=== PATIENT | male | born 1975 | race Caucasian/White ===

== ENCOUNTER 2017-06-01 14:38 | Emergency (ER) | payer OTHER ==
[2017-06-01 14:39] VITALS: O2SAT 99
[2017-06-01 14:59] LABS: I-STAT POTASSIUM 4.2 MMOL/L (3.5-4.9)
[2017-06-01 15:00] LABS: AUTOMATED NEUTROPHIL # 4.8 TH/MM3 (1.8-7.7); BASOPHIL # 0.1 TH/MM3 (0-0.2); EOSINOPHIL # 0.1 TH/MM3 (0-0.4); HEMATOCRIT 46.5 % (39.0-51.0); LYMPH % 34.9 % (9.0-44.0); MEAN CELL VOLUME 83.1 FL (80.0-100.0); MEAN CORPUSCULAR HEMOGLOBIN 29.1 PG (27.0-34.0); MONO % 8.1 % (0.0-8.0); PLATELET COUNT 242 TH/MM3 (150-450); RED CELL DISTRIBUTION WIDTH 14.2 % (11.6-17.2); WHITE BLOOD COUNT 8.7 TH/MM3 (4.0-11.0)
--- NOTE | 2017-06-01 15:03 | RADRPT ---
EXAM DATE/TIME: 06/01/2017 14:43 [facility] COMPARISON: No previous studies available for comparison. INDICATIONS : Trauma Alert, fell MEDICAL HISTORY : None. SURGICAL HISTORY : None. ENCOUNTER: Initial ACUITY: 1 day PAIN SCORE: 0/10 LOCATION: chest FINDINGS: A single view of the chest demonstrates the lungs to be symmetrically, but under aerated without evid ence of mass, infiltrate or effusion. The cardiomediastinal contours are unremarkable. Osseous stru ctures are intact. CONCLUSION: Hypoinflation with no acute cardiopulmonary process. Bhupinder Lal MD on June 01, 2017 at 15:01 Board Certified Radiologist. This report was verified electronically.
[2017-06-01 15:05] LABS: HEMO FLAGS AUTO DIFF
--- NOTE | 2017-06-01 15:05 | PD ---
HPI Chief Complaint: spinal cord injury Time Seen by Provider: 14:39 Travel History International Travel<30 days: No Contact w/Intl Traveler<30days: No Traveled to known affect area: No History of Present Illness HPI This patient is called a trauma alert by paramedics. There is suspicion of spinal cord injury so this is a level I activation. 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 He reports that he hit his head. No LOC. He complains of head and neck pain as well as some back pain and he complains of weakness in sensory loss of the left leg. Duration 1 hour. Symptoms moderately severe. No alleviating factors. No exacerbating factors. I gave report to trauma surgeon Dr. Anderson, who arrived just as the patient was heading to CAT scan. Allergies-Medications (Allergen,Severity, Reaction): Coded Allergies: meperidine (Verified Allergy, Severe, Anaphylaxis, 06/01/17) Reported Meds & Prescriptions Reported Meds & Active Scripts Active No Active Prescriptions or Reported Medications Review of Systems General / Constitutional: No: Fever Eyes: No: Visual changes HENT: No: Headaches Cardiovascular: No: Chest Pain or Discomfort Respiratory: No: Shortness of Breath Gastrointestinal: No: Abdominal Pain Genitourinary: No: Dysuria Musculoskeletal: Positive: Weakness, Pain Skin: No Rash Neurologic: Positive: Weakness, Sensory Disturbance Psychiatric: No: Depression Endocrine: No: Polydipsia Hematologic/Lymphatic: No: Easy Bruising Physical Exam Narrative GENERAL: Well-nourished, well-developed patient with weakness and sensory loss of left leg. SKIN: Focused skin assessment reveals no rash and nodules. Skin is Warm and dry. HEAD: Atraumatic. Normocephalic. EYES: Pupils equal and round. No scleral icterus. No injection or drainage. ENT: No nasal bleeding or discharge. Mucous membranes pink and moist. NECK: Trachea midline. No JVD. C-collar maintained CARDIOVASCULAR: Regular rate and rhythm. No murmur appreciated. RESPIRATORY: No accessory muscle use. Clear to auscultation. Breath sounds equal bilaterally. GASTROINTESTINAL: Abdomen soft, non-tender, nondistended. Hepatic and splenic margins not palpable. MUSCULOSKELETAL: No obvious deformities. No clubbing. No cyanosis. No edema. NEUROLOGICAL: Awake and alert. No obvious cranial nerve deficits. Motor exam reveals some weakness of quadriceps and plantar and dorsiflexion of left leg. He does have some motion but weaker than the right side. Unclear if he is giving full effort. Normal speech. GCS 15. Subjective decreased sensation from proximal thigh all the way down to the left foot to both sharp and light touch. Sensation on the right. Sensation around the perianal region intact PSYCHIATRIC: Appropriate mood and affect; insight and judgment normal. Data Data Last Documented VS Vital Signs Date Time Temp Pulse Resp B/P (MAP) Pulse Ox O2 Delivery O2 Flow Rate FiO2 06/01/17 15:20 98.2 74 10 121/78 (92) 100 Room Air 06/01/17 14:39 21 Orders Orders Ed Poc Ultrasound (06/01/17 ) I-Stat Profile (06/01/17 14:40) I-Stat Creatinine (06/01/17 14:40) Complete Blood Count With Diff (06/01/17 14:40) Prothrombin Time / Inr (Pt) (06/01/17 14:40) Act Partial Throm Time (Ptt) (06/01/17 14:40) Type And Screen (06/01/17 14:40) Fibrinogen (06/01/17 14:40) Chest, Single Ap (06/01/17 14:40) Pelvis, Ap Only (Routine) (06/01/17 14:40) Ct Brain W/O Iv Contrast(Rout) (06/01/17 14:40) Ct Cerv Spine W/O Contrast (06/01/17 14:40) Ct Thor Spine W/O Contrast (06/01/17 14:40) Ct Lumb Spine W/O Contrast (06/01/17 14:40) Iv Access Insert/Monitor (06/01/17 14:40) Ecg Monitoring (06/01/17 14:40) Oximetry (06/01/17 14:40) Oxygen Administration (06/01/17 14:40) Mri L Spine W/O Contrast (06/01/17 ) Mri T Spine W/O Contrast (06/01/17 ) Mri C Spine W/O Contrast (06/01/17 ) Acetaminophen (Tylenol) (06/01/17 18:00) Labs Laboratory Tests Test 06/01/17 14:40 White Blood Count 8.7 TH/MM3 Red Blood Count 5.60 MIL/MM3 Hemoglobin 16.3 GM/DL Bedside Hemoglobin 16.3 G/DL Hematocrit 46.5 % Bedside Hematocrit 48.0 % Mean Corpuscular Volume 83.1 FL Mean Corpuscular Hemoglobin 29.1 PG Mean Corpuscular Hemoglobin Concent 35.0 % Red Cell Distribution Width 14.2 % Platelet Count 242 TH/MM3 Mean Platelet Volume 9.4 FL Neutrophils (%) (Auto) 55.0 % Lymphocytes (%) (Auto) 34.9 % Monocytes (%) (Auto) 8.1 % Eosinophils (%) (Auto) 1.0 % Basophils (%) (Auto) 1.0 % Neutrophils # (Auto) 4.8 TH/MM3 Lymphocytes # (Auto) 3.0 TH/MM3 Monocytes # (Auto) 0.7 TH/MM3 Eosinophils # (Auto) 0.1 TH/MM3 Basophils # (Auto) 0.1 TH/MM3 CBC Comment AUTO DIFF Differential Comment AUTO DIFF CONFIRMED Platelet Estimate NORMAL Platelet Morphology Comment NORMAL Red Cell Morphology Comment NORMAL Prothrombin Time 10.4 SEC Prothromb Time International Ratio 0.9 RATIO Activated Partial Thromboplast Time 25.7 SEC Fibrinogen 208 mg/dL Bedside Sodium 141 MMOL/L Bedside Potassium 4.2 MMOL/L Bedside Chloride 102 MMOL/L Bedside Blood Urea Nitrogen 9 MG/DL Bedside Creatinine 0.8 MG/DL Bedside Glucose 89 MG/DL [facility] Medical Screen Exam Complete: Yes Emergency Medical Condition: Yes Medical Record Reviewed: Yes Differential Diagnosis Vertebral fracture, spinal cord hematoma, cord compression Narrative Course Patient arrives critically ill based on possible spinal cord injury 2 IVs placed Initial blood pressure and pulse are normal I reviewed his chest x-ray which is normal I reviewed his pelvis x-ray which is normal I've ordered CT imaging of brain and the entire spine CBC is normal Metabolic profile is normal CT of the C-spine and thoracic spine and lumbar spine all revealed degenerative changes rather diffusely but there is no fracture or obvious canal impingement or cord compression I discussed in detail with trauma surgeon Dr. Anderson I have ordered MRI of his spinal cord We'll reevaluate him neurologically as the workup continues MRI of the entire spinal cord is done and there are no obvious structural lesions to explain his presentation. He does have arthritic changes throughout but no cord compression or impingement or cord hematoma I reevaluated the patient He seems to move his leg more than he did earlier He doesn't seem to give any real effort We stood up and tried to walk him but he didn't want to walk and just sort of collapsed down He did seem to his left leg to lift himself up off the bed but then wouldn't put weight on it His neurologic exam seems to change frequently. It seems inconsistent. I discussed at length with Dr. Anderson. We discussed whether there is value to hospitalizing him but just be observed as there is nothing surgical to fix and he recommends sending him back to the care home to follow-up with the [facility] Narrative Aggregate critical care time was 35 minutes. Time to perform other separately billable procedures was not included in the critical care time. My time did not include minutes spent treating any other patients simultaneously or on activities that did not directly contribute to the patient's treatment. The services I provided to this patient were to treat and/or prevent clinically significant deterioration that could result in: Permanent neurologic disability , paralysis, cord hematoma I provided critical care services requiring my management, as noted below: Chart data review, documentation time, medication orders and management, vital sign assessments/reviewing monitor data, ordering and reviewing lab tests, ordering and interpreting/reviewing x-rays and diagnostic studies, care of the patient and discussion of the patient with the admitting physicians. Trauma Alert - Level One Trauma Alert Level One: Full trauma team activate Diagnosis Diagnosis: Primary Impression: Right leg weakness Additional Impression: Fall (on) (from) other stairs and steps, initial encounter Additional Instructions: Ambulate as able Follow-up with [facility] Script[facility] No Active Prescriptions or Reported Meds Disposition: [address] LAW ENFORCEMNT Condition: Stable Shahid Duffy MD Jun 01, 2017 15:05
--- NOTE | 2017-06-01 15:05 | RADRPT ---
EXAM DATE/TIME: 06/01/2017 14:43 [facility] COMPARISON: No previous studies available for comparison. INDICATIONS : Trauma Alert, fell MEDICAL HISTORY : None. SURGICAL HISTORY : None. ENCOUNTER: Initial ACUITY: 1 day PAIN SCORE: 0/10 LOCATION: Pelvis FINDINGS: A single frontal view of the pelvis demonstrates no evidence of fracture. Well-corticated ossificati on lateral to the left acetabular roof may represent a chronic old avulsion fracture or accessory oss ification. The bony pelvic ring is intact. Bony mineralization is normal. The soft tissues are inta ct. CONCLUSION: 1. Probable old avulsion injury or accessory ossification adjacent to the left acetabular roof. 2. No acute fracture. Bhupinder Lal MD on June 01, 2017 at 15:02 Board Certified Radiologist. This report was verified electronically.
--- NOTE | 2017-06-01 15:10 | RADRPT ---
EXAM DATE/TIME: 06/01/2017 14:46 [facility] COMPARISON: No previous studies available for comparison. INDICATIONS : Trauma alert, fall down concrete stairs today. RADIATION DOSE: 56.35 CTDIvol (mGy) MEDICAL HISTORY : Non-responsive. SURGICAL HISTORY : Non-responsive. ENCOUNTER: Initial ACUITY: 1 day PAIN SCALE: Non-responsive LOCATION: Bilateral head TECHNIQUE: Multiple contiguous axial images were obtained of the head. Using automated exposure control and adj ustment of the mA and/or kV according to patient size, radiation dose was kept as low as reasonably a chievable to obtain optimal diagnostic quality images. DICOM format image data is available electro nically for review and comparison. FINDINGS: CEREBRUM: The ventricles are normal for age. No evidence of midline shift, mass lesion, hemorrhage or acute in farction. No extra-axial fluid collections are seen. POSTERIOR FOSSA: The cerebellum and brainstem are intact. The 4th ventricle is midline. The cerebellopontine angle i s unremarkable. EXTRACRANIAL: The visualized portion of the orbits is intact. SKULL: The calvaria is intact. No evidence of skull fracture. CONCLUSION: Negative exam. No fracture. Bhupinder Lal MD on June 01, 2017 at 15:08 Board Certified Radiologist. This report was verified electronically.
[2017-06-01 15:20] VITALS: BP 121/78; PULSE 74; RESP 10; TEMP 98.2; O2SAT 100
[2017-06-01 15:20] LABS: APTT (PATIENT) 25.7 SEC (24.3-30.1); INTERNATIONAL NORMALIZED RATIO 0.9 RATIO; PROTHROMBIN TIME - PATIENT 10.4 SEC (9.8-11.6)
--- NOTE | 2017-06-01 15:20 | RADRPT ---
EXAM DATE/TIME: 06/01/2017 14:46 [facility] COMPARISON: No previous studies available for comparison. INDICATIONS : Trauma alert, fall down concrete stairs today. RADIATION DOSE: 42.3 CTDIvol (mGy) MEDICAL HISTORY : Non-responsive. SURGICAL HISTORY : Non-responsive. ENCOUNTER: Initial ACUITY: 1 day PAIN SCALE: 8/10 LOCATION: Bilateral back TECHNIQUE: Volumetric scanning of the cervical spine was performed. Multiplanar reconstructions in the sagittal, coronal and oblique axial planes were performed. Using automated exposure control and adjustment o f the mA and/or kV according to patient size, radiation dose was kept as low as reasonably achievable to obtain optimal diagnostic quality images. DICOM format image data is available electronically f or review and comparison. FINDINGS: Sagittal and coronal reconstructions show degenerative disease throughout the cervical spine with los s of disc height at every cervical level. Marginal spurring is seen from C2-3 through C6-7. However, vertebral body heights are maintained without evidence of fracture or listhesis. . C2-C3: Uncovertebral ridging. Some encroachment on the spinal canal and left neural foramina. Spinal canal a nd right neural foramina are adequate C3-C4: Uncovertebral ridging. Some encroachment on both neural foramina and the spinal canal. C4-C5: Uncovertebral ridging. Encroachment most prominent on the left neural foramina. C5-C6: Diffuse uncovertebral ridging with some encroachment on the neural foramina most prominent leftward C6-C7: Diffuse uncovertebral ridging. Encroachment on both neural foramina, right greater than left. C7-T1: The bony spinal canal is normal in size. No evidence of disc bulge or herniation. The neural forami na are bilaterally patent. CONCLUSION: 1. Degenerative disc disease throughout the cervical spine with loss of height and marginal spurring from C2-3 through C6 level. 2. Spurring encroaches on the neural foramina and spinal canal at multiple levels as detailed above. 3. No fracture or listhesis. Bhupinder Lal MD on June 01, 2017 at 15:09 Board Certified Radiologist. This report was verified electronically.
--- NOTE | 2017-06-01 15:34 | RADRPT ---
EXAM DATE/TIME: 06/01/2017 14:54 [facility] COMPARISON: No previous studies available for comparison. INDICATIONS : Trauma alert, fall down concrete stairs today. RADIATION DOSE: 22.16 CTDIvol (mGy) ; Combined studies - Thoracic Spine/Lumbar Spine MEDICAL HISTORY : Non-responsive. SURGICAL HISTORY : Non-responsive. ENCOUNTER: Initial ACUITY: 1 day PAIN SCALE: Non-responsive LOCATION: Bilateral back TECHNIQUE: Volumetric scanning of the thoracic spine was performed. Multiplanar reconstructions in the sagittal , coronal and oblique axial planes were performed. Using automated exposure control and adjustment o f the mA and/or kV according to patient size, radiation dose was kept as low as reasonably achievable to obtain optimal diagnostic quality images. DICOM format image data is available electronically f or review and comparison. FINDINGS: Sagittal and coronal reconstructions show multilevel degenerative disc disease with marginal spurring most prominent from T6-7 inferiorly. These are predominately directed anteriorly and laterally. Vert ebral body heights are maintained without fracture or listhesis. Despite degenerative changes, the sp inal canal appears to be adequate throughout T1-T2: Normal. T2-T3: The thecal sac has a normal diameter. No evidence of disc bulge or protrusion. T3-T4: The thecal sac has a normal diameter. No evidence of disc bulge or protrusion. T4-T5: The thecal sac has a normal diameter. No evidence of disc bulge or protrusion. T5-T6: The thecal sac has a normal diameter. No evidence of disc bulge or protrusion. T6-T7: Anteriorly directed spurs. Spinal canal is patent T7-T8: Anteriorly directed spurs. Spinal canal is patent T8-T9: Anteriorly directed spur. Spinal canal is patent T9-T10: Anteriorly directed spur. Spinal canal is patent. T10-T11: Anteriorly directed spur. Spinal canal is patent T11-T12: Anteriorly directed spur. Spinal canal is patent T12-L1: The thecal sac has a normal diameter. No evidence of disc bulge or protrusion. CONCLUSION: 1. Multilevel degenerative disc disease with predominantly anterior and lateral spurring from T6-T7 i nferiorly. 2. Despite degenerative changes, spinal canal appears to be adequate throughout. 3. No fracture or listhesis. Bhupinder Lal MD on June 01, 2017 at 15:29 Board Certified Radiologist. This report was verified electronically.
--- NOTE | 2017-06-01 15:42 | RADRPT ---
EXAM DATE/TIME: 06/01/2017 14:54 [facility] COMPARISON: No previous studies available for comparison. INDICATIONS : Trauma alert, fall down concrete stairs today. RADIATION DOSE: 22.16 CTDIvol (mGy) ; Combined studies - Thoracic Spine/Lumbar Spine MEDICAL HISTORY : Non-responsive. SURGICAL HISTORY : Non-responsive. ENCOUNTER: Initial ACUITY: 1 day PAIN SCALE: Non-responsive LOCATION: Bilateral back TECHNIQUE: Volumetric scanning of the lumbar spine was performed. Multiplanar reconstructions in the sagittal, coronal and oblique axial planes were performed. Using automated exposure control and adjustment of the mA and/or kV according to patient size, radiation dose was kept as low as reasonably achievable t o obtain optimal diagnostic quality images. DICOM format image data is available electronically for review and comparison. FINDINGS: Sagittal and coronal reconstructions show degenerative disc disease lower dorsal spine with anteriorl y directed marginal spurs at T11-12 and T12-L1. Small spurs are seen off the superior endplate of L3 and L4. Otherwise, vertebral body and disc heights are maintained the lumbar spine. No listhesis. Vac uum joint phenomenon in the SI joints bilaterally. T12-L1: The thecal sac has a normal diameter. No evidence of disc bulge or protrusion. The neural foramina are patent bilaterally. L1-L2: The thecal sac has a normal diameter. No evidence of disc bulge or protrusion. The neural foramina are patent bilaterally. L2-L3: The thecal sac has a normal diameter. No evidence of disc bulge or protrusion. The neural foramina are patent bilaterally. L3-L4: The thecal sac has a normal diameter. No evidence of disc bulge or protrusion. The neural foramina are patent bilaterally. L4-L5: The thecal sac has a normal diameter. No evidence of disc bulge or protrusion. The neural foramina are patent bilaterally. L5-S1: The thecal sac has a normal diameter. No evidence of disc bulge or protrusion. The neural foramina are patent bilaterally. CONCLUSION: 1. Large marginal spurs directed anteriorly in the lower dorsal spine and the thoracolumbar junction. Small spurs of the superior endplates of L3 and L4. 2. Otherwise, spinal canal and neural foramina appear to be adequate at all lumbar levels. 3. No fracture or listhesis. 4. Vacuum joint phenomenon in the SI joints bilaterally. Bhupinder Lal MD on June 01, 2017 at 15:33 Board Certified Radiologist. This report was verified electronically.
[2017-06-01 15:49] LABS: SCAN/DIFF AUTO DIFF CONFIRMED
[2017-06-01 15:50] LABS: PLATELET ESTIMATE SMEAR NORMAL (NORMAL); PLATELET MORPHOLOGY NORMAL (NORMAL)
--- NOTE | 2017-06-01 16:38 | RADRPT ---
EXAM DATE/TIME: 06/01/2017 16:06 [facility] COMPARISON: CT THORACIC SPINE W/O CONTRAST, June 01, 2017, 14:54. INDICATIONS : Trauma. Left lower extremity weakness. MEDICAL HISTORY : Hepatitis C. SURGICAL HISTORY : Right knee surgery. ENCOUNTER: Initial ACUITY: 1 day PAIN SCORE: 0/10 LOCATION: Paraspinal TECHNIQUE: Multiplanar multisequence MRI of the thoracic spine was performed. FINDINGS: VERTEBRA: Bone marrow signal is within normal limits. No fracture or compression deformity is identified. Endpl ate osteophytes are present anteriorly at multiple levels. ALIGNMENT: There is no anterolisthesis or retrolisthesis. There is accentuated thoracic kyphosis around the T9-T 10 level. CORD: Normal position and configuration. T1-T2: No disc herniation, canal stenosis, or neural foraminal stenosis. T2-T3: No disc herniation, canal stenosis, or neural foraminal stenosis. T3-T4: No disc herniation, canal stenosis, or neural foraminal stenosis. T4-T5: There is a small central disc protrusion. No canal stenosis or neural foraminal stenosis is identifie d. T5-T6: No disc herniation, canal stenosis, or neural foraminal stenosis. T6-T7: No disc herniation, canal stenosis, or neural foraminal stenosis. T7-T8: There is a very small left paracentral disc protrusion. No spinal canal stenosis or neural foraminal stenosis is identified. T8-T9: No disc herniation, canal stenosis, or neural foraminal stenosis. T9-T10: There is a mild disc bulge. No canal stenosis or neural foraminal stenosis is identified. T10-T11: There is a mild disc bulge. No canal stenosis or neural foraminal stenosis is identified. T11-T12: No disc herniation, canal stenosis, or neural foraminal stenosis. T12-L1: There is a mild diffuse disc bulge. No canal stenosis or neural foraminal stenosis is identified. CONCLUSION: There are degenerative changes of the thoracic spine, as above. No significant disc herniation, spina l canal stenosis, or neural foraminal narrowing is identified. Micah Perales MD on June 01, 2017 at 16:31 Board Certified Radiologist. This report was verified electronically.
--- NOTE | 2017-06-01 17:00 | RADRPT ---
EXAM DATE/TIME: 06/01/2017 16:06 [facility] COMPARISON: CT LUMBAR SPINE W/O CONTRAST, June 01, 2017, 14:54. INDICATIONS : Trauma. Left lower extremity weakness MEDICAL HISTORY : Hepatitis C. SURGICAL HISTORY : Right knee surgery. ENCOUNTER: Initial ACUITY: 1 day PAIN SCORE: 0/10 LOCATION: Paraspinal TECHNIQUE: Multiplanar multisequence MRI of the lumbar spine was performed without contrast. FINDINGS: The most caudal appearing lumbar vertebra is numbered as L5. Sagittal T1, T2 and inversion recovery images demonstrate degenerative spurring most prominent at the thoracolumbar junction with a prominent anteriorly directed spur. There is some early disc desiccati on at L4 with loss of T2 signal and disc height. Disc hydration and height is maintained at all remai rosario levels. Minimal encroachment on the anterior epidural space at T12-L1. Otherwise, the spinal can al is widely patent without fracture or listhesis. T12-L1: The thecal sac has a normal diameter. No evidence of disc bulge or protrusion. The neural foramina are patent bilaterally. L1-L2: The thecal sac has a normal diameter. No evidence of disc bulge or protrusion. The neural foramina are patent bilaterally. L2-L3: The thecal sac has a normal diameter. No evidence of disc bulge or protrusion. The neural foramina are patent bilaterally. L3-L4: The thecal sac has a normal diameter. No evidence of disc bulge or protrusion. The neural foramina are patent bilaterally. L4-L5: Mild facet hypertrophy. Spinal canal and neural foramina are patent L5-S1: Mild facet hypertrophy. Spinal canal and neural foramina are patent. CONCLUSION: 1. Degenerative disc disease most prominent at the thoracolumbar junction with a prominent anteriorly directed spur at T12-L1. 2. Early degenerative disc disease with some loss of height and disc desiccation at L4-5. Disc and ve rtebral body heights are maintained at all remaining lumbar levels. 3. Spinal canal and neural foramina are adequate throughout without nerve root compromise to explain current clinical symptoms. No fracture. Bhupinder Lal MD on June 01, 2017 at 16:54 Board Certified Radiologist. This report was verified electronically.
--- NOTE | 2017-06-01 17:12 | RADRPT ---
EXAM DATE/TIME: 06/01/2017 16:06 [facility] COMPARISON: CT CERVICAL SPINE W/O CONTRAST, June 01, 2017, 14:46. INDICATIONS : Trauma. Left lower extremity weakness. MEDICAL HISTORY : Hepatitis C. SURGICAL HISTORY : Right knee surgery. ENCOUNTER: Initial ACUITY: 1 day PAIN SCORE: 0/10 LOCATION: [facility] TECHNIQUE: Multiplanar, multisequence MRI examination of the cervical spine was performed. FINDINGS: T1 sagittal sequence is degraded by motion artifact. VERTEBRAE: Bone marrow signal is within normal limits. There are endplate osteophytes at multiple levels. ALIGNMENT: No anterolisthesis or retrolisthesis. There is straightening of the cervical spine. CORD: The spinal cord is effaced at multiple levels, see below, but signal intensity is within normal limit s. POST FOSSA: The cerebellar tonsils are normal in position. The craniocervical junction and C1-C2 level demonstrate no acute finding. C2-C3: There is a left paracentral posterior disc osteophyte complex with left uncovertebral osteophyte. Thi s causes mild to moderate left neural foraminal stenosis. No canal stenosis or right neural foraminal narrowing is present. C3-C4: There are is a posterior disc osteophyte complex, largest in a left paracentral location with bilater al uncovertebral osteophytes. Spinal canal is mildly narrowed and there is moderate bilateral neural foraminal narrowing. C4-C5: Mild decreased disc height with minimal posterior disc osteophyte complex and bilateral uncovertebral osteophytes. No significant spinal canal stenosis is present. There is mild right and moderate left neural foraminal narrowing. C5-C6: Decreased disc height with endplate osteophytes anteriorly and in moderate posterior diffuse disc ost eophyte complex and bilateral uncovertebral osteophytes. There is mild spinal canal stenosis with mod erate left and mild right neural foraminal narrowing. C6-C7: Decreased disc height with endplate osteophytes anteriorly. There is a diffuse posterior disc osteoph yte complex and uncovertebral osteophytes. Spinal canal is mildly narrowed and there is moderate bila teral neural foraminal stenosis. C7-T1: No disc herniation, canal stenosis, or neural foraminal stenosis is present. CONCLUSION: There is degenerative disc disease throughout the cervical spine at C2-C3 through C6-C7. Mild spinal canal stenosis is present at C3-C4, C5-C6, and C6-C7. Spinal cord signal intensity remains within nor mal limits. There are areas of mild to moderate neural foraminal narrowing, as above. Micah Perales MD on June 01, 2017 at 17:04 Board Certified Radiologist. This report was verified electronically.
[2017-06-01] MEDS ORDERED: ACETAMINOPHEN 325 MG TAB PO ONE (18:00)
--- NOTE | 2017-06-01 21:28 | MH ---
cc: BEA FLETCHER MD DATE OF ADMISSION: 06/01/2017 CHIEF COMPLAINT: Trauma alert, status post fall. HISTORY OF PRESENT ILLNESS: The patient is a 40-judith year old male status post fall down 10 concrete steps. The patient came in as a level I trauma alert due to his decreased neurologic activity in the left lower extremity. The patient was noted be hemodynamically stable en route. He was reported to have a loss of consciousness and was down; however, he denied any specific loss of consciousness and the guard who witnessed the initial event confirmed this. He came with for further evaluation to the trauma bay again noted to be hemodynamically stable. He was a GCS of 15. He was moving all extremities except his left lower extremity. He was complaining of some back pain as well. He was then taken to the CT scanner for further evaluation without evidence of head injury and no evidence of acute spinal injury though noting chronic degenerative changes throughout his entire spine. PAST MEDICAL HISTORY: 1. Hepatitis. 2. Drug abuse. PAST SURGICAL HISTORY: The patient denies any surgeries. SOCIAL HISTORY: Positive smoking. Denies EtOH or IV drug abuse. ALLERGIES: MEPERIDINE. Medications: See the electronic medical record. FAMILY HISTORY: He denies hypertension or diabetes. REVIEW OF SYSTEMS: GENERAL: Denies any fevers or chills. HEAD, EYES, EARS, NOSE, THROAT: Complains of head pain but denies loss of consciousness. CARDIOVASCULAR: Denies chest pain or palpitations. RESPIRATORY: Denies shortness of breath or cough. : Denies dysuria or hematuria. ABDOMEN: Denies abdominal pain or nausea. SKIN: Denies rash or lesions. NEUROLOGIC: Complains of weakness and decreased sensation. PSYCHIATRIC: Denies any depression. PHYSICAL EXAMINATION: GENERAL: The patient is in no acute distress. VITAL SIGNS: 121/78, pulse 74, respirations 10, 100% on room air, temperature is 98.2. HEAD, EYES, EARS, NOSE, THROAT: Pupils equal, round and reactive. Normocephalic and atraumatic. NECK: The neck is in a cervical collar. Clavicles are nontender. CHEST: Bilateral expansion. Clear to auscultation. HEART: S1-S2 regular rhythm. ABDOMEN: The abdomen is soft, nontender and nondistended. EXTREMITIES: Warm. Well-perfused. NEUROLOGIC: GCS of 15 and moving all extremities except the left lower extremity, which the patient states he is unable to fully move his left lower extremity and complains of decreased sensation on that mid-thigh distally. BACK: No step-offs, nontender. RECTAL: Deferred. PSYCHIATRIC: Appropriate mood and affect. LABORATORY AND DIAGNOSTIC DATA: WBCs 8.71, hemoglobin 16.3,, hematocrit 46.5, platelets 242,000. Sodium 141, potassium 4.2, chloride 102, BUN 9, creatinine 0.8, glucose 89. INR 0.9. CT reviewed by myself. CT head showing no evidence of acute pathology. CT cervical spine showing degenerative disease. No evidence of acute fracture. CT thoracic and lumbar shows also multiple degenerative changes. No evidence of fracture or acute subluxation. Chest and pelvic x-rays are negative. ASSESSMENT: The patient is a [id number]-old male who came in as a level I trauma alert complaining of some neurologic deficits left lower extremity. The patient is noted to occasionally be moving this extremity and intermittently putting weight on this. MRI was obtained to further delineate with further no evidence of any cord impingement or acute fracture abnormality. At this point, discussed with the emergency department attending for likely appropriate to be transferred back to alf as the patient has no acute neurosurgical issues. Recommend a follow up with marlin Dai if persistent weakness and we will have physical therapy assess the patient further. Discussed with the patient and guards in detail who stated understanding and agreed. MD HENRY Kenyon/DEBORAH /8:26 PM /9:19 PM
[2017-06-23] MEDS ORDERED: SABOXONE PO (15:00)
[2017-06-23] MEDS ORDERED: PENI500T PO (15:02)
[2017-06-24] MEDS ORDERED: SUBO8MIS SL (12:28)
== END 2017-06-01 19:43 ==
LOC: EDBD 14:38 → NEPI 14:38 → EEVIPCON 14:38 → NEPE 19:43
DX: R53.1 Weakness (principal); W10.8XXA Fall (on) (from) other stairs and steps, initial encounter; Y92.149 Unspecified place in prison as the place of occurrence of the external cause
CPT/HCPCS: 70450; 71010; 72125; 72128; 72131; 72141; 72146; 72148; 72170; 82435; 82565; 82947; 84132; 84295; 84520; 85025; 85384; 85610; 85730; 86850; 86900; 86901; 99291; G0390